=== PATIENT | male | born 1955 | race Caucasian/White ===

== ENCOUNTER 2022-03-06 16:25 | Outpatient (CLI) | payer MEDICARE | END 2022-03-06 16:26 | disposition home or self-care (01) | LOC: CSHRAD 16:25 | PROVIDERS: ATTEND Student in an Organized Health Care Education/Training Program | DX: M25.552 Pain in left hip (principal); Z96.643 Presence of artificial hip joint, bilateral; S72.112A Displaced fracture of greater trochanter of left femur, initial encounter for closed fracture; M89.8X8 Other specified disorders of bone, other site ==

== ENCOUNTER 2022-03-08 10:41 | Outpatient (CLI) | payer MEDICARE | END 2022-03-08 10:42 | disposition home or self-care (01) | LOC: CSHRAD 10:41 | PROVIDERS: ATTEND Student in an Organized Health Care Education/Training Program | DX: M79.605 Pain in left leg (principal); S72.112D Displaced fracture of greater trochanter of left femur, subsequent encounter for closed fracture with routine healing ==

== ENCOUNTER 2022-04-19 10:38 | Outpatient (CLI) | payer MEDICARE | END 2022-04-19 10:39 | disposition home or self-care (01) | LOC: CSHRAD 10:38 | PROVIDERS: ATTEND Orthopaedic Surgery | DX: Z96.642 Presence of left artificial hip joint (principal); S72.112K Displaced fracture of greater trochanter of left femur, subsequent encounter for closed fracture with nonunion | CPT/HCPCS: 20610; 77002 ==

== ENCOUNTER 2022-04-26 23:10 | Emergency (ER) | payer MEDICARE ==
[2022-04-26 23:58] LABS: #Basophils 0.1 10x3/uL (0.0-0.2); #Eosinphils 0.4 10x3/uL (0.0-0.5); #Monocytes 1.1 10x3/uL (0.0-1.1); #Neutrophils 5.1 10x3/uL (1.5-8.4); %Basophils 1.3 % (0.0-2.0); %Eosinophils 4.5 % (0.0-6.0); %Monocytes 12.4 % (0.0-10.0); %Neutrophils 59.4 % (40.0-75.0); Hemoglobin 11.3 g/dL (13.5-17.5); Mean Corpuscular HGB CONC 33.9 g/dL (32.0-36.0); Mean Corpuscular Hemoglobin 35.8 pg (27.0-33.0); Mean Corpuscular Volume 105.4 fl (81.2-95.1); Mean Platelet Volume 9.3 fl (7.4-10.4); Platelet Count 301 10x3/uL (150-450); RBC Distribution Width 13.3 % (11.5-14.5); Red Blood Cell (RBC) Count 3.16 10x6/uL (4.32-5.72); White Blood Cell (WBC) Count 8.5 10x3/uL (3.5-10.5)
[2022-04-27] MEDS ORDERED: Fentanyl 100 MCG/2 ML VIAL ONE
[2022-04-27] MEDS ORDERED: PROPOFOL 20 ML ONE
[2022-04-27 00:18] LABS: Anion Gap 15 mmol/L (10-20); BUN (Urea Nitrogen) 15 mg/dL (8.4-25.7); Calc. Creatinine Clearance 0 mL/min (70-130); Calcium 9.8 mg/dL (7.8-10.44); Carbon Dioxide 24 mmol/L (23-31); Chloride 106 mmol/L (98-107); Estimated GFR 93; Glucose 91 mg/dL (80-115); Potassium 3.5 mmol/L (3.5-5.1); Sodium 141 mmol/L (136-145)
[2022-04-27 02:02] LABS: Platelet Morphology Comment Appears Adequate; RBC Morphology Normal
== END 2022-04-27 08:33 | disposition home or self-care (01) ==
LOC: CSHERS 23:10
DX: T84.011A Broken internal left hip prosthesis, initial encounter (principal); T84.021A Dislocation of internal left hip prosthesis, initial encounter; M17.12 Unilateral primary osteoarthritis, left knee; I10 Essential (primary) hypertension; E78.5 Hyperlipidemia, unspecified; Z79.899 Other long term (current) drug therapy; X50.1XXA Overexertion from prolonged static or awkward postures, initial encounter
CPT/HCPCS: 27265; 72170; 80048; 85025; 99156; 99157; J3010

== ENCOUNTER 2022-06-12 17:48 | Emergency (ER) | payer OTHER, MEDICARE ==
[2022-06-12] MEDS ORDERED: Ketorolac Tromethamine 30 MG/ML VIAL ONE (19:28)
[2022-06-12] MEDS ORDERED: HYDROcodone/Acetaminophen 5/325 mg Tablet ONE (19:28)
== END 2022-06-12 20:38 | disposition home or self-care (01) ==
LOC: CSHERS 17:48
DX: S20.212A Contusion of left front wall of thorax, initial encounter (principal); M25.552 Pain in left hip; I10 Essential (primary) hypertension; E78.5 Hyperlipidemia, unspecified; Z79.899 Other long term (current) drug therapy; Z87.891 Personal history of nicotine dependence; W01.0XXA Fall on same level from slipping, tripping and stumbling without subsequent striking against object, initial encounter; Y92.009 Unspecified place in unspecified non-institutional (private) residence as the place of occurrence of the external cause
CPT/HCPCS: 93005; 96374; J1885

== ENCOUNTER 2022-07-16 08:35 | Outpatient (CLI) | payer MEDICARE | END 2022-07-16 08:36 | disposition home or self-care (01) | LOC: CSHCT 08:35 | PROVIDERS: ATTEND Student in an Organized Health Care Education/Training Program | DX: Z12.2 Encounter for screening for malignant neoplasm of respiratory organs (principal); Z87.891 Personal history of nicotine dependence; J94.8 Other specified pleural conditions; I25.10 Atherosclerotic heart disease of native coronary artery without angina pectoris; I25.84 Coronary atherosclerosis due to calcified coronary lesion | CPT/HCPCS: 71271 ==

== ENCOUNTER 2022-07-17 10:06 | Inpatient (IN) | payer MEDICARE ==
[2022-07-17 11:06] LABS: Hemoglobin 4.5 g/dL (13.5-17.5); MDiff Complete? YES; Mean Corpuscular HGB CONC 28.3 g/dL (32.0-36.0); Platelet Count 631 10x3/uL (150-450); RBC Distribution Width 18.3 % (11.5-14.5); White Blood Cell (WBC) Count 7.8 10x3/uL (3.5-10.5)
[2022-07-17 11:14] LABS: ALT (SGPT) 26 U/L (8-55); AST (SGOT) 27 U/L (5-34); Albumin 3.6 g/dL (3.4-4.8); Alkaline Phosphatase 150 U/L (40-110); Anion Gap 15 mmol/L (10-20); BUN (Urea Nitrogen) 10 mg/dL (8.4-25.7); Bilirubin, Total 0.5 mg/dL (0.2-1.2); Calc. Creatinine Clearance 0 mL/min (70-130); Calcium 9.1 mg/dL (7.8-10.44); Carbon Dioxide 23 mmol/L (23-31); Chloride 107 mmol/L (98-107); Estimated GFR 96; Globulin 2.4 g/dL (2.4-3.5); Glucose 99 mg/dL (80-115); Potassium 4.6 mmol/L (3.5-5.1); Sodium 140 mmol/L (136-145)
[2022-07-17 11:32] LABS: Eosinophils 1 % (0-10); Lymphocytes 13 % (21-51); Monocytes 11 % (0-10); Neutrophil 75 % (42-75)
[2022-07-17 11:34] LABS: Hypochromia SLIGHT = 6-15 cells (100X) (0-5/hpf); Macrocytosis SLIGHT = 6-15 cells (100X) (0-5/hpf); Platelet Morphology Comment Appears Increased
[2022-07-17 11:36] LABS: Anisocytosis SLIGHT = 6-15 cells (100X) (0-5/hpf); Polychromasia SLIGHT = 2-3 cells (100X) (0-2/hpf)
[2022-07-17 11:37] LABS: Stomatocytes SLIGHT = 2-5 cells (100X) (0-1/hpf)
[2022-07-17 11:39] LABS: Reflex for Review?? YES
[2022-07-17 12:59] LABS: #Eosinphils 0.2 10x3/uL (0.0-0.5); #Monocytes 1.3 10x3/uL (0.0-1.1); #Neutrophils 5.1 10x3/uL (1.5-8.4); %Basophils 0.5 % (0.0-2.0); %Eosinophils 2.2 % (0.0-6.0); %Lymphocytes 14.5 % (18.0-47.0); %Monocytes 16.6 % (0.0-10.0); %Neutrophils 65.9 % (40.0-75.0); Hemoglobin 4.3 g/dL (13.5-17.5); Mean Corpuscular HGB CONC 27.9 g/dL (32.0-36.0); Mean Corpuscular Hemoglobin 29.5 pg (27.0-33.0); Mean Corpuscular Volume 105.5 fl (81.2-95.1); Mean Platelet Volume 9.2 fl (7.4-10.4); Platelet Count 550 10x3/uL (150-450); RBC Distribution Width 18.4 % (11.5-14.5); Red Blood Cell (RBC) Count 1.46 10x6/uL (4.32-5.72); White Blood Cell (WBC) Count 7.7 10x3/uL (3.5-10.5)
[2022-07-17] MEDS ORDERED: Iopamidol 300 61% 100 ML VIAL FS ONE (14:02)
[2022-07-17 14:03] LABS: Troponin I 0.023 ng/mL (< 0.028)
[2022-07-17] MEDS ORDERED: Ondansetron ODT 4 MG TAB PO PRN (14:03)
[2022-07-17] MEDS ORDERED: Senokot S 8.6-50 MG TAB PO PRN (14:03)
[2022-07-17] MEDS ORDERED: Calcium Carbonate 500 MG ChewTAB PO PRN (14:03)
[2022-07-17] MEDS ORDERED: Ondansetron PF 4 MG/2 ML Vial IVP PRN (14:03)
[2022-07-17] MEDS ORDERED: Pantoprazole 40 MG VIAL IVP SCH ×2 (14:30→20:00)
[2022-07-17 14:57] LABS: Iron 25 ug/dL (65-175); Iron Binding Capacity, Total 398 mcg/dL (261-462)
[2022-07-17 15:25] LABS: Ferritin 48.1 ng/mL (22-322)
[2022-07-17 16:34] LABS: #Basophils 0.1 10x3/uL (0.0-0.2); #Eosinphils 0.2 10x3/uL (0.0-0.5); #Monocytes 1.4 10x3/uL (0.0-1.1); #Neutrophils 6.1 10x3/uL (1.5-8.4); %Basophils 0.8 % (0.0-2.0); %Eosinophils 2.1 % (0.0-6.0); %Lymphocytes 15.5 % (18.0-47.0); %Monocytes 14.9 % (0.0-10.0); %Neutrophils 66.4 % (40.0-75.0); Hemoglobin 6.9 g/dL (13.5-17.5); Mean Corpuscular HGB CONC 29.7 g/dL (32.0-36.0); Mean Corpuscular Hemoglobin 28.4 pg (27.0-33.0); Mean Corpuscular Volume 95.5 fl (81.2-95.1); Mean Platelet Volume 9.5 fl (7.4-10.4); Platelet Count 547 10x3/uL (150-450); RBC Distribution Width 20.5 % (11.5-14.5); Red Blood Cell (RBC) Count 2.43 10x6/uL (4.32-5.72); White Blood Cell (WBC) Count 9.2 10x3/uL (3.5-10.5)
[2022-07-17 16:53] LABS: Troponin I 0.021 ng/mL (< 0.028)
[2022-07-17 16:54] LABS: Bilirubin Neg (Negative); Blood, Urine Negative (Negative); Clarity Clear (Clear); Glucose, Urine (Dipstick) Normal (Negative); Ketone, Urine Negative (Negative); Leukocyte Negative (Negative); Nitrite Negative (Negative); Protein, Urine (Dipstick) Negative (Neg-Trace); Specific Gravity, Urine 1.015 (1.005-1.030); Urobilinogen Normal mg/dL (Less than 2); pH, Urine 6.5 (5.0-9.0)
[2022-07-17 18:14] VITALS: BMI 22.2
[2022-07-17 18:45] LABS: Hemoglobin 6.9 g/dL (13.5-17.5)
[2022-07-17] MEDS: Sodium Chloride 0.9% 1,000 ML IV SCH (19:55)
[2022-07-17] MEDS: Gabapentin 100 MG CAP PO SCH (20:18)
[2022-07-17 23:38] LABS: Bilirubin Neg (Negative); Blood, Urine Negative (Negative); Clarity Clear (Clear); Glucose, Urine (Dipstick) Normal (Negative); Ketone, Urine Negative (Negative); Leukocyte Negative (Negative); Nitrite Negative (Negative); Protein, Urine (Dipstick) 15 mg/dl (Neg-Trace); Specific Gravity, Urine 1.015 (1.005-1.030); Urobilinogen Normal mg/dL (Less than 2)
[2022-07-17 23:47] LABS: Bacteria/HPF None Seen HPF (None Seen); CAUTI Indications for Culture Dysuria,urgency,freq; RBC/HPF None Seen HPF (0-3); WBC/HPF None Seen HPF (0-3)
[2022-07-17 23:48] LABS: Squamous Epithelial 0-3 HPF (0-3)
[2022-07-17 23:49] LABS: Urine Culture Reflex No No
[2022-07-18 08:41] LABS: #Basophils 0.1 10x3/uL (0.0-0.2); #Eosinphils 0.2 10x3/uL (0.0-0.5); #Monocytes 1.6 10x3/uL (0.0-1.1); #Neutrophils 9.6 10x3/uL (1.5-8.4); %Basophils 0.6 % (0.0-2.0); %Eosinophils 1.8 % (0.0-6.0); %Lymphocytes 7.1 % (18.0-47.0); %Neutrophils 76.9 % (40.0-75.0); Hemoglobin 8.3 g/dL (13.5-17.5); Mean Corpuscular Hemoglobin 28.5 pg (27.0-33.0); Mean Corpuscular Volume 95.2 fl (81.2-95.1); Mean Platelet Volume 9.5 fl (7.4-10.4); Platelet Count 561 10x3/uL (150-450); RBC Distribution Width 19.6 % (11.5-14.5); Red Blood Cell (RBC) Count 2.91 10x6/uL (4.32-5.72); White Blood Cell (WBC) Count 12.5 10x3/uL (3.5-10.5)
[2022-07-18] MEDS: Sodium Chloride 0.9% 1,000 ML IV SCH (08:44)
[2022-07-18 09:00] LABS: Anion Gap 15 mmol/L (10-20); BUN (Urea Nitrogen) 7 mg/dL (8.4-25.7); Calc. Creatinine Clearance 100 mL/min (70-130); Calcium 8.6 mg/dL (7.8-10.44); Carbon Dioxide 23 mmol/L (23-31); Chloride 104 mmol/L (98-107); Estimated GFR 100; Glucose 94 mg/dL (80-115); Potassium 4.3 mmol/L (3.5-5.1); Sodium 138 mmol/L (136-145)
[2022-07-18 09:09] LABS: Anion Gap 11 mmol/L (10-20); BUN (Urea Nitrogen) 8 mg/dL (8.4-25.7); Carbon Dioxide 26 mmol/L (23-31); Chloride 104 mmol/L (98-107); Sodium 137 mmol/L (136-145)
[2022-07-18 09:10] LABS: ALT (SGPT) 25 U/L (8-55); AST (SGOT) 21 U/L (5-34); Albumin 3.2 g/dL (3.4-4.8); Alkaline Phosphatase 141 U/L (40-110); Calc. Creatinine Clearance 99 mL/min (70-130); Calcium 8.7 mg/dL (7.8-10.44); Estimated GFR 100; Globulin 2.7 g/dL (2.4-3.5); Glucose 96 mg/dL (80-115); Protein, Total 5.9 g/dL (5.8-8.1)
[2022-07-18] MEDS: Pantoprazole 40 MG VIAL IVP SCH ×2 (10:42→20:18)
[2022-07-18] MEDS: Atorvastatin Calcium 20 MG TAB PO SCH (10:42)
[2022-07-18] MEDS ORDERED: Furosemide 100 MG/10 ML VIAL SLOW IVP SCH (13:30)
[2022-07-18] MEDS: Ventolin HFA Inhaler 60 PUFF INHALER INH PRN ×3 (14:45→23:24)
[2022-07-18] MEDS ORDERED: GoLYTELY 4,000 ml Bottle PO SCH (19:00)
[2022-07-18] MEDS: Gabapentin 100 MG CAP PO SCH (20:17)
[2022-07-19 05:42] LABS: Anion Gap 15 mmol/L (10-20); BUN (Urea Nitrogen) 8 mg/dL (8.4-25.7); Calc. Creatinine Clearance 96 mL/min (70-130); Calcium 8.6 mg/dL (7.8-10.44); Carbon Dioxide 26 mmol/L (23-31); Chloride 103 mmol/L (98-107); Estimated GFR 99; Glucose 100 mg/dL (80-115); Potassium 3.9 mmol/L (3.5-5.1); Sodium 140 mmol/L (136-145)
[2022-07-19 06:04] LABS: Mean Corpuscular Hemoglobin 28.8 pg (27.0-33.0); Mean Corpuscular Volume 92.7 fl (81.2-95.1); Mean Platelet Volume 9.2 fl (7.4-10.4); Platelet Count 526 10x3/uL (150-450); RBC Distribution Width 19.1 % (11.5-14.5); Red Blood Cell (RBC) Count 3.13 10x6/uL (4.32-5.72); White Blood Cell (WBC) Count 11.3 10x3/uL (3.5-10.5)
[2022-07-19 06:34] LABS: MDiff Complete? YES
[2022-07-19 06:44] LABS: Eosinophils 1 % (0-10); Lymphocytes 11 % (21-51); Monocytes 18 % (0-10); Neutrophil 70 % (42-75)
[2022-07-19 06:46] LABS: Hypochromia SLIGHT = 6-15 cells (100X) (0-5/hpf); Microcytosis SLIGHT = 6-15 cells (100X) (0-5/hpf); Platelet Morphology Comment Appears Increased
[2022-07-19] MEDS: Pantoprazole 40 MG VIAL IVP SCH ×2 (08:36→20:25)
[2022-07-19] MEDS: Atorvastatin Calcium 20 MG TAB PO SCH (08:36)
[2022-07-19] MEDS: Ventolin HFA Inhaler 60 PUFF INHALER INH PRN ×3 (09:50→19:45)
[2022-07-19] MEDS: Furosemide 40 MG/4 ML VIAL SLOW IVP SCH ×2 (14:11→17:35)
[2022-07-19] MEDS ORDERED: PROPOFOL 20 ML ONE ×3 (15:13→16:12)
[2022-07-19] MEDS ORDERED: Hydrocortisone Sod Succ/PF 100 mg/2 ml Vial ONE (15:13)
[2022-07-19] MEDS ORDERED: Rocuronium Bromide 10 MG/ML (10ML VIAL) ONE (15:13)
[2022-07-19] MEDS ORDERED: Succinylcholine 200 MG/10 ml SYRINGE FS ONE (15:14)
[2022-07-19] MEDS ORDERED: Labetalol HCl 100 MG/20 ML VIAL ONE (15:14)
[2022-07-19] MEDS ORDERED: PHENYLEPHRINE-NS 100 MCG/ML 10 ML SYRINGE ONE (15:14)
[2022-07-19] MEDS ORDERED: Albuterol HFA (OR) 200 PUFF INH ONE (15:14)
[2022-07-19] MEDS ORDERED: Fentanyl 100 MCG/2 ML VIAL ONE (15:45)
[2022-07-19] MEDS: Gabapentin 100 MG CAP PO SCH (20:25)
[2022-07-20 07:37] LABS: #Basophils 0.1 10x3/uL (0.0-0.2); #Eosinphils 0.3 10x3/uL (0.0-0.5); #Monocytes 2.3 10x3/uL (0.0-1.1); %Basophils 0.5 % (0.0-2.0); %Eosinophils 1.9 % (0.0-6.0); %Lymphocytes 5.5 % (18.0-47.0); %Monocytes 12.9 % (0.0-10.0); %Neutrophils 78.8 % (40.0-75.0); Mean Corpuscular HGB CONC 30.6 g/dL (32.0-36.0); Mean Corpuscular Hemoglobin 28.7 pg (27.0-33.0); Mean Corpuscular Volume 93.6 fl (81.2-95.1); Mean Platelet Volume 9.1 fl (7.4-10.4); Platelet Count 527 10x3/uL (150-450); Red Blood Cell (RBC) Count 3.14 10x6/uL (4.32-5.72); White Blood Cell (WBC) Count 17.8 10x3/uL (3.5-10.5)
[2022-07-20 07:50] LABS: Anion Gap 15 mmol/L (10-20); BUN (Urea Nitrogen) 8 mg/dL (8.4-25.7); Calc. Creatinine Clearance 99 mL/min (70-130); Calcium 8.5 mg/dL (7.8-10.44); Carbon Dioxide 23 mmol/L (23-31); Chloride 101 mmol/L (98-107); Estimated GFR 100; Glucose 105 mg/dL (80-115); Potassium 3.7 mmol/L (3.5-5.1); Sodium 135 mmol/L (136-145)
[2022-07-20] MEDS: Acetaminophen 325 MG TAB PO PRN ×2 (08:49→21:39)
[2022-07-20] MEDS: Atorvastatin Calcium 20 MG TAB PO SCH (08:49)
[2022-07-20] MEDS: Pantoprazole 40 MG VIAL IVP SCH ×2 (08:50→21:38)
[2022-07-20] MEDS: Ampicillin/Sulbactam 1.5 GM in Sodium Chloride 0.9% 100 ML IVPB SCH ×3 (12:22→23:32)
[2022-07-20 12:33] LABS: Bilirubin Neg (Negative); Blood, Urine Negative (Negative); Clarity Clear (Clear); Glucose, Urine (Dipstick) Normal (Negative); Ketone, Urine Negative (Negative); Leukocyte Negative (Negative); Nitrite Negative (Negative); Protein, Urine (Dipstick) 15 mg/dl (Neg-Trace); Specific Gravity, Urine 1.005 (1.005-1.030); Urobilinogen Normal mg/dL (Less than 2)
[2022-07-20 13:13] LABS: Bacteria/HPF Rare-Few HPF (None Seen); CAUTI Indications for Culture Fever or rigors; RBC/HPF 0-3 HPF (0-3); Squamous Epithelial None Seen HPF (0-3); WBC/HPF 0-3 HPF (0-3)
[2022-07-20 13:14] LABS: Urine Culture Reflex No No
[2022-07-20] MEDS: Ventolin HFA Inhaler 60 PUFF INHALER INH PRN (18:11)
[2022-07-20] MEDS: Gabapentin 100 MG CAP PO SCH (21:40)
[2022-07-21] MEDS: Acetaminophen 325 MG TAB PO PRN (00:50)
[2022-07-21] MEDS: Ampicillin/Sulbactam 1.5 GM in Sodium Chloride 0.9% 100 ML IVPB SCH ×2 (05:23→11:51)
[2022-07-21 07:18] LABS: #Basophils 0.1 10x3/uL (0.0-0.2); #Eosinphils 0.5 10x3/uL (0.0-0.5); #Monocytes 1.6 10x3/uL (0.0-1.1); #Neutrophils 7.2 10x3/uL (1.5-8.4); %Basophils 0.8 % (0.0-2.0); %Eosinophils 4.5 % (0.0-6.0); %Monocytes 14.9 % (0.0-10.0); %Neutrophils 68.4 % (40.0-75.0); Hemoglobin 9.5 g/dL (13.5-17.5); Mean Corpuscular HGB CONC 30.6 g/dL (32.0-36.0); Mean Corpuscular Hemoglobin 28.6 pg (27.0-33.0); Mean Corpuscular Volume 93.4 fl (81.2-95.1); Mean Platelet Volume 9.5 fl (7.4-10.4); Platelet Count 512 10x3/uL (150-450); RBC Distribution Width 18.5 % (11.5-14.5); Red Blood Cell (RBC) Count 3.32 10x6/uL (4.32-5.72); White Blood Cell (WBC) Count 10.6 10x3/uL (3.5-10.5)
[2022-07-21 07:34] LABS: Anion Gap 15 mmol/L (10-20); BUN (Urea Nitrogen) 9 mg/dL (8.4-25.7); Calc. Creatinine Clearance 100 mL/min (70-130); Calcium 8.8 mg/dL (7.8-10.44); Carbon Dioxide 24 mmol/L (23-31); Chloride 104 mmol/L (98-107); Estimated GFR 100; Glucose 93 mg/dL (80-115); Potassium 3.5 mmol/L (3.5-5.1); Sodium 139 mmol/L (136-145)
[2022-07-21] MEDS: Atorvastatin Calcium 20 MG TAB PO SCH (07:58)
[2022-07-21] MEDS: Pantoprazole 40 MG VIAL IVP SCH (07:58)
[2022-07-21] MEDS ORDERED: Senokot S 8.6-50 MG TAB PO PRN (10:00)
[2022-07-21 13:12] VITALS: BP 175/84; TEMP 99.7
== END 2022-07-21 14:25 | disposition home or self-care (01) | DRG 378 ==
LOC: CSHERS 10:06 → SUATTDRO 10:06 → CSHTELE 17:56
PROVIDERS: ADMIT Internal Medicine; ATTEND Internal Medicine
PROC: 30233N1 Transfusion of Nonautologous Red Blood Cells into Peripheral Vein, Percutaneous Approach (ICD-10-PCS; 2022-07-17)
PROC: 0DB78ZX Excision of Stomach, Pylorus, Via Natural or Artificial Opening Endoscopic, Diagnostic (ICD-10-PCS; principal; 2022-07-19)
PROC: 0DBK8ZZ Excision of Ascending Colon, Via Natural or Artificial Opening Endoscopic (ICD-10-PCS; 2022-07-19)
PROC: 0W3P8ZZ Control Bleeding in Gastrointestinal Tract, Via Natural or Artificial Opening Endoscopic (ICD-10-PCS; 2022-07-19)
PROC: 0DB98ZX Excision of Duodenum, Via Natural or Artificial Opening Endoscopic, Diagnostic (ICD-10-PCS; 2022-07-19)
DX: K25.4 Chronic or unspecified gastric ulcer with hemorrhage (principal); D62 Acute posthemorrhagic anemia; J90 Pleural effusion, not elsewhere classified; F10.10 Alcohol abuse, uncomplicated; I10 Essential (primary) hypertension; E78.5 Hyperlipidemia, unspecified; J44.9 Chronic obstructive pulmonary disease, unspecified; I25.10 Atherosclerotic heart disease of native coronary artery without angina pectoris; I25.84 Coronary atherosclerosis due to calcified coronary lesion; Z96.642 Presence of left artificial hip joint; G89.29 Other chronic pain; G62.9 Polyneuropathy, unspecified; D50.9 Iron deficiency anemia, unspecified; K63.5 Polyp of colon; K64.8 Other hemorrhoids; K57.30 Diverticulosis of large intestine without perforation or abscess without bleeding; Z87.891 Personal history of nicotine dependence; Z85.118 Personal history of other malignant neoplasm of bronchus and lung; Z79.82 Long term (current) use of aspirin; Z79.899 Other long term (current) drug therapy; Z12.2 Encounter for screening for malignant neoplasm of respiratory organs
CPT/HCPCS: 36415; 36430; 71045; 71271; 74177; 80048; 80053; 81001; 81003; 82274; 82607; 82728; 83540; 83550; 83615; 83880; 84484; 85025; 85046; 85060; 86850; 86900; 86901; 87040; 88305; 93005; 94664; 94760; C9113; J0295; J1720; J1940; J2704; J3010; J3490; J7050; P9016; Q9967

== ENCOUNTER 2023-01-01 17:45 | Emergency (ER) | payer MEDICARE ==
[2023-01-01 18:43] LABS: #Basophils 0.1 10x3/uL (0.0-0.2); #Eosinphils 0.2 10x3/uL (0.0-0.5); #Monocytes 1.1 10x3/uL (0.0-1.1); #Neutrophils 6.2 10x3/uL (1.5-8.4); %Basophils 0.7 % (0.0-2.0); %Eosinophils 2.3 % (0.0-6.0); %Lymphocytes 20.6 % (18.0-47.0); %Monocytes 11.7 % (0.0-10.0); %Neutrophils 64.4 % (40.0-75.0); Hemoglobin 14.7 g/dL (13.5-17.5); Mean Corpuscular Hemoglobin 35.8 pg (27.0-33.0); Mean Corpuscular Volume 102.2 fl (81.2-95.1); Mean Platelet Volume 10.3 fl (7.4-10.4); Platelet Count 194 10x3/uL (150-450); RBC Distribution Width 12.6 % (11.5-14.5); Red Blood Cell (RBC) Count 4.11 10x6/uL (4.32-5.72); White Blood Cell (WBC) Count 9.6 10x3/uL (3.5-10.5)
[2023-01-01 18:59] LABS: ALT (SGPT) 109 U/L (8-55); AST (SGOT) 178 U/L (5-34); Albumin 4.4 g/dL (3.4-4.8); Alkaline Phosphatase 81 U/L (40-110); Anion Gap 18 mmol/L (10-20); BUN (Urea Nitrogen) 4 mg/dL (8.4-25.7); Calc. Creatinine Clearance 0 mL/min (70-130); Calcium 9.9 mg/dL (7.8-10.44); Carbon Dioxide 24 mmol/L (23-31); Chloride 99 mmol/L (98-107); Estimated GFR 95; Globulin 3.1 g/dL (2.4-3.5); Glucose 92 mg/dL (80-115); Lipase 35 U/L (8-78); Potassium 3.5 mmol/L (3.5-5.1); Protein, Total 7.5 g/dL (5.8-8.1); Sodium 137 mmol/L (136-145)
[2023-01-01 20:13] LABS: Bilirubin Neg (Negative); Blood, Urine Negative (Negative); Clarity Clear (Clear); Glucose, Urine (Dipstick) Normal (Negative); Ketone, Urine Negative (Negative); Leukocyte Negative (Negative); Nitrite Negative (Negative); Protein, Urine (Dipstick) Negative (Neg-Trace); Urobilinogen Normal mg/dL (Less than 2)
[2023-01-01 20:41] LABS: CAUTI Indications for Culture Pelvic or flank pain; RBC/HPF None Seen HPF (0-3); Squamous Epithelial None Seen HPF (0-3); WBC/HPF None Seen HPF (0-3)
[2023-01-01 20:42] LABS: Bacteria/HPF None Seen HPF (None Seen)
[2023-01-01 20:43] LABS: Urine Culture Reflex No No
[2023-01-01] MEDS ORDERED: Dicyclomine 20 MG/2 ML VIAL IM SCH (21:30)
== END 2023-01-01 21:12 | disposition home or self-care (01) ==
LOC: CSHERS 17:45
DX: R10.31 Right lower quadrant pain (principal); R10.32 Left lower quadrant pain; I10 Essential (primary) hypertension; Z87.891 Personal history of nicotine dependence
CPT/HCPCS: 36415; 74177; 80053; 81001; 83605; 83690; 85025; 96372

== ENCOUNTER 2023-01-14 19:29 | Emergency (ER) | payer MEDICARE ==
[2023-01-14] MEDS ORDERED: Ondansetron PF 4 MG/2 ML Vial ONE ×2 (20:16→22:36)
[2023-01-14 20:29] LABS: #Basophils 0.1 10x3/uL (0.0-0.2); #Neutrophils 7.3 10x3/uL (1.5-8.4); %Basophils 0.8 % (0.0-2.0); %Eosinophils 0.1 % (0.0-6.0); %Lymphocytes 9.8 % (18.0-47.0); %Monocytes 10.5 % (0.0-10.0); %Neutrophils 78.3 % (40.0-75.0); Hematocrit 42.4 % (38.8-50.0); Hemoglobin 14.8 g/dL (13.5-17.5); Mean Corpuscular HGB CONC 34.9 g/dL (32.0-36.0); Mean Corpuscular Hemoglobin 35.7 pg (27.0-33.0); Mean Corpuscular Volume 102.2 fl (81.2-95.1); Platelet Count 168 10x3/uL (150-450); RBC Distribution Width 11.9 % (11.5-14.5); Red Blood Cell (RBC) Count 4.15 10x6/uL (4.32-5.72); White Blood Cell (WBC) Count 9.3 10x3/uL (3.5-10.5)
[2023-01-14 20:35] LABS: ALT (SGPT) 80 U/L (8-55); AST (SGOT) 108 U/L (5-34); Albumin 4.9 g/dL (3.4-4.8); Alkaline Phosphatase 105 U/L (40-110); Anion Gap 19 mmol/L (10-20); BUN (Urea Nitrogen) 7 mg/dL (8.4-25.7); Bilirubin, Total 1.5 mg/dL (0.2-1.2); Calc. Creatinine Clearance 0 mL/min (70-130); Calcium 11.5 mg/dL (7.8-10.44); Carbon Dioxide 28 mmol/L (23-31); Chloride 98 mmol/L (98-107); Estimated GFR 93; Glucose 122 mg/dL (80-115); Lipase 16 U/L (8-78); Potassium 4.1 mmol/L (3.5-5.1); Protein, Total 7.9 g/dL (5.8-8.1); Sodium 141 mmol/L (136-145)
[2023-01-14 20:39] LABS: Troponin I 0.016 ng/mL (< 0.028)
[2023-01-14 22:51] LABS: ALT (SGPT) 64 U/L (8-55); AST (SGOT) 87 U/L (5-34); Alkaline Phosphatase 86 U/L (40-110); Anion Gap 15 mmol/L (10-20); BUN (Urea Nitrogen) 7 mg/dL (8.4-25.7); Bilirubin, Total 1.2 mg/dL (0.2-1.2); Calc. Creatinine Clearance 0 mL/min (70-130); Calcium 10.2 mg/dL (7.8-10.44); Carbon Dioxide 28 mmol/L (23-31); Chloride 102 mmol/L (98-107); Estimated GFR 97; Globulin 2.7 g/dL (2.4-3.5); Glucose 113 mg/dL (80-115); Potassium 3.5 mmol/L (3.5-5.1); Protein, Total 6.7 g/dL (5.8-8.1); Sodium 141 mmol/L (136-145)
[2023-01-14 23:01] LABS: Lactic Acid 1.1 mmol/L (0.5-2.2)
[2023-01-14] MEDS ORDERED: Ondansetron ODT 4 MG TAB ONE (23:19)
== END 2023-01-14 23:37 | disposition home or self-care (01) ==
LOC: CSHERS 19:29
DX: R10.9 Unspecified abdominal pain (principal); R11.2 Nausea with vomiting, unspecified; E83.52 Hypercalcemia; I10 Essential (primary) hypertension; E78.5 Hyperlipidemia, unspecified; Z87.891 Personal history of nicotine dependence; Z79.899 Other long term (current) drug therapy
CPT/HCPCS: 36415; 36416; 76705; 80053; 83605; 83690; 84484; 85025; 93005; J2405; Q0162

== ENCOUNTER 2023-03-01 10:06 | Emergency (ER) | payer MEDICARE ==
[2023-03-01 10:44] LABS: #Basophils 0.1 10x3/uL (0.0-0.2); #Eosinphils 0.3 10x3/uL (0.0-0.5); #Monocytes 0.9 10x3/uL (0.0-1.1); #Neutrophils 2.3 10x3/uL (1.5-8.4); %Basophils 1.6 % (0.0-2.0); %Eosinophils 5.2 % (0.0-6.0); %Lymphocytes 37.1 % (18.0-47.0); %Monocytes 15.2 % (0.0-10.0); %Neutrophils 40.9 % (40.0-75.0); Hematocrit 38.7 % (38.8-50.0); Hemoglobin 13.5 g/dL (13.5-17.5); Mean Corpuscular HGB CONC 34.9 g/dL (32.0-36.0); Mean Corpuscular Volume 103.2 fl (81.2-95.1); Mean Platelet Volume 9.4 fl (7.4-10.4); Platelet Count 231 10x3/uL (150-450); RBC Distribution Width 12.1 % (11.5-14.5); Red Blood Cell (RBC) Count 3.75 10x6/uL (4.32-5.72); White Blood Cell (WBC) Count 5.6 10x3/uL (3.5-10.5)
[2023-03-01 11:03] LABS: ALT (SGPT) 62 U/L (8-55); AST (SGOT) 88 U/L (5-34); Alkaline Phosphatase 101 U/L (40-110); Anion Gap 17 mmol/L (10-20); BUN (Urea Nitrogen) 6 mg/dL (8.4-25.7); Bilirubin, Total 0.7 mg/dL (0.2-1.2); Calc. Creatinine Clearance 0 mL/min (70-130); Calcium 9.1 mg/dL (7.8-10.44); Carbon Dioxide 27 mmol/L (23-31); Chloride 102 mmol/L (98-107); Estimated GFR 98; Globulin 3.1 g/dL (2.4-3.5); Glucose 104 mg/dL (80-115); Lipase 30 U/L (8-78); Potassium 3.6 mmol/L (3.5-5.1); Protein, Total 7.1 g/dL (5.8-8.1); Sodium 142 mmol/L (136-145)
[2023-03-01 13:34] LABS: Bilirubin Neg (Negative); Blood, Urine Negative (Negative); Clarity Clear (Clear); Glucose, Urine (Dipstick) Normal (Negative); Ketone, Urine Negative (Negative); Leukocyte Negative (Negative); Nitrite Negative (Negative); Protein, Urine (Dipstick) 15 mg/dl (Neg-Trace)
[2023-03-01 13:49] LABS: Bacteria/HPF None Seen HPF (None Seen); CAUTI Indications for Culture Pelvic or flank pain; RBC/HPF None Seen HPF (0-3); Squamous Epithelial None Seen HPF (0-3); Urine Culture Reflex No No; WBC/HPF None Seen HPF (0-3)
== END 2023-03-01 14:50 | disposition home or self-care (01) ==
LOC: CSHERS 10:06
DX: R30.0 Dysuria (principal); R10.30 Lower abdominal pain, unspecified; Z87.891 Personal history of nicotine dependence; Z79.899 Other long term (current) drug therapy
CPT/HCPCS: 36415; 80053; 81001; 83690; 85025; 93005

== ENCOUNTER 2023-03-09 16:50 | Emergency (ER) | payer MEDICARE ==
[2023-03-09] MEDS ORDERED: Tamsulosin HCl 0.4 MG CAP ONE (17:38)
[2023-03-09 17:43] LABS: #Basophils 0.1 10x3/uL (0.0-0.2); #Eosinphils 0.3 10x3/uL (0.0-0.5); #Monocytes 0.8 10x3/uL (0.0-1.1); #Neutrophils 1.7 10x3/uL (1.5-8.4); %Basophils 1.9 % (0.0-2.0); %Eosinophils 7.4 % (0.0-6.0); %Lymphocytes 34.8 % (18.0-47.0); %Monocytes 17.4 % (0.0-10.0); %Neutrophils 38.3 % (40.0-75.0); Hematocrit 34.9 % (38.8-50.0); Mean Corpuscular HGB CONC 34.4 g/dL (32.0-36.0); Mean Corpuscular Hemoglobin 35.7 pg (27.0-33.0); Mean Corpuscular Volume 103.9 fl (81.2-95.1); Mean Platelet Volume 9.3 fl (7.4-10.4); Platelet Count 143 10x3/uL (150-450); RBC Distribution Width 12.4 % (11.5-14.5); Red Blood Cell (RBC) Count 3.36 10x6/uL (4.32-5.72); White Blood Cell (WBC) Count 4.3 10x3/uL (3.5-10.5)
[2023-03-09 17:51] LABS: Acetaminophen Less than 10 mcg/mL (10.0-30.0); Alcohol 329.7 mg/dL (Less than 10); Salicylate Less than 8.0 mg/dL (15.0-30.0)
[2023-03-09 17:52] LABS: ALT (SGPT) 139 U/L (8-55); AST (SGOT) 188 U/L (5-34); Alkaline Phosphatase 118 U/L (40-110); Anion Gap 18 mmol/L (10-20); BUN (Urea Nitrogen) 4 mg/dL (8.4-25.7); Bilirubin, Total 0.9 mg/dL (0.2-1.2); Calc. Creatinine Clearance 0 mL/min (70-130); Carbon Dioxide 23 mmol/L (23-31); Chloride 107 mmol/L (98-107); Estimated GFR 99; Globulin 2.7 g/dL (2.4-3.5); Glucose 104 mg/dL (80-115); Potassium 3.5 mmol/L (3.5-5.1); Protein, Total 6.7 g/dL (5.8-8.1); Sodium 144 mmol/L (136-145)
[2023-03-09 19:14] LABS: Bilirubin Neg (Negative); Blood, Urine Negative (Negative); Clarity Clear (Clear); Glucose, Urine (Dipstick) Normal (Negative); Ketone, Urine Negative (Negative); Leukocyte Negative (Negative); Nitrite Negative (Negative); Protein, Urine (Dipstick) Negative (Neg-Trace)
[2023-03-09 19:25] LABS: Amphetamine Not Detected (NotDetected); Barbiturates Screen Not Detected (NotDetected); Benzodiazepine Screen Not Detected (NotDetected); Cocaine Metabolite Screen Not Detected (NotDetected); Methadone Not Detected (NotDetected); Methamphetamine Not Detected (NotDetected); Opiate Screen Not Detected (NotDetected); Oxycodone Screen Not Detected (NotDetected); Phencyclidine (PCP) Not Detected (NotDetected); THC/Cannabinoid Screen Not Detected (NotDetected); Tricyclic Screen Not Detected (NotDetected)
[2023-03-09 19:52] LABS: Bacteria/HPF None Seen HPF (None Seen); CAUTI Indications for Culture Pelvic or flank pain; RBC/HPF None Seen HPF (0-3); Squamous Epithelial None Seen HPF (0-3); WBC/HPF None Seen HPF (0-3)
[2023-03-09 19:53] LABS: Urine Culture Reflex No No
== END 2023-03-09 20:09 | disposition home or self-care (01) ==
LOC: CSHERS 16:50
DX: F10.129 Alcohol abuse with intoxication, unspecified (principal); R10.30 Lower abdominal pain, unspecified; I10 Essential (primary) hypertension; Z87.891 Personal history of nicotine dependence
CPT/HCPCS: 36415; 80053; 80306; 80307; 81001; 85025; 99284

== ENCOUNTER 2023-03-13 14:02 | Emergency (ER) | payer MEDICARE ==
[2023-03-13 14:56] LABS: #Basophils 0.1 10x3/uL (0.0-0.2); #Eosinphils 0.2 10x3/uL (0.0-0.5); #Monocytes 0.9 10x3/uL (0.0-1.1); #Neutrophils 2.2 10x3/uL (1.5-8.4); %Basophils 1.6 % (0.0-2.0); %Eosinophils 4.8 % (0.0-6.0); %Lymphocytes 32.1 % (18.0-47.0); %Monocytes 17.9 % (0.0-10.0); %Neutrophils 43.6 % (40.0-75.0); Hemoglobin 11.9 g/dL (13.5-17.5); Mean Corpuscular Hemoglobin 35.6 pg (27.0-33.0); Mean Corpuscular Volume 104.8 fl (81.2-95.1); Mean Platelet Volume 9.1 fl (7.4-10.4); Platelet Count 167 10x3/uL (150-450); RBC Distribution Width 12.3 % (11.5-14.5); Red Blood Cell (RBC) Count 3.34 10x6/uL (4.32-5.72)
[2023-03-13 15:03] LABS: Anion Gap 15 mmol/L (10-20); BUN (Urea Nitrogen) 4 mg/dL (8.4-25.7); Calc. Creatinine Clearance 0 mL/min (70-130); Calcium 8.4 mg/dL (7.8-10.44); Carbon Dioxide 26 mmol/L (23-31); Chloride 110 mmol/L (98-107); Estimated GFR 100; Glucose 100 mg/dL (80-115); Potassium 2.7 mmol/L (3.5-5.1); Sodium 148 mmol/L (136-145)
[2023-03-13 15:22] LABS: Magnesium 1.6 mg/dL (1.6-2.6)
[2023-03-13] MEDS ORDERED: Potassium Chloride 20 MEQ TAB ONE (15:25)
[2023-03-13] MEDS ORDERED: Potassium Chloride 20 MEQ/100 ML PREMIX BAG ONE (15:26)
[2023-03-13 16:45] LABS: Anion Gap 14 mmol/L (10-20); BUN (Urea Nitrogen) 4 mg/dL (8.4-25.7); Calc. Creatinine Clearance 0 mL/min (70-130); Calcium 8.6 mg/dL (7.8-10.44); Carbon Dioxide 26 mmol/L (23-31); Chloride 108 mmol/L (98-107); Estimated GFR 101; Glucose 103 mg/dL (80-115); Potassium 3.2 mmol/L (3.5-5.1); Sodium 145 mmol/L (136-145)
[2023-03-13 16:50] LABS: Amphetamine Not Detected (NotDetected); Barbiturates Screen Not Detected (NotDetected); Benzodiazepine Screen Not Detected (NotDetected); Cocaine Metabolite Screen Not Detected (NotDetected); Methadone Not Detected (NotDetected); Methamphetamine Not Detected (NotDetected); Opiate Screen Not Detected (NotDetected); Oxycodone Screen Not Detected (NotDetected); Phencyclidine (PCP) Not Detected (NotDetected); THC/Cannabinoid Screen Not Detected (NotDetected); Tricyclic Screen Not Detected (NotDetected)
[2023-03-13 17:19] LABS: Acetaminophen Less than 10 mcg/mL (10.0-30.0); Alcohol 301.5 mg/dL (Less than 10); Salicylate Less than 8.0 mg/dL (15.0-30.0)
== END 2023-03-13 19:15 | disposition home or self-care (01) ==
LOC: CSHERS 14:02
DX: F10.129 Alcohol abuse with intoxication, unspecified (principal); I10 Essential (primary) hypertension; E78.5 Hyperlipidemia, unspecified; Z87.891 Personal history of nicotine dependence; Y90.8 Blood alcohol level of 240 mg/100 ml or more; E87.6 Hypokalemia
CPT/HCPCS: 36415; 80048; 80306; 80307; 83735; 85025; 93005; 96374; J3480

== ENCOUNTER 2023-05-11 21:59 | Inpatient (IN) | payer MEDICARE, OTHER ==
[2023-05-11 22:38] LABS: #Basophils 0.1 10x3/uL (0.0-0.2); #Eosinphils 0.2 10x3/uL (0.0-0.5); #Monocytes 0.7 10x3/uL (0.0-1.1); #Neutrophils 2.5 10x3/uL (1.5-8.4); %Basophils 1.8 % (0.0-2.0); %Eosinophils 3.2 % (0.0-6.0); %Lymphocytes 38.5 % (18.0-47.0); %Monocytes 12.1 % (0.0-10.0); %Neutrophils 44.2 % (40.0-75.0); Hematocrit 40.1 % (38.8-50.0); Hemoglobin 13.9 g/dL (13.5-17.5); Mean Corpuscular HGB CONC 34.7 g/dL (32.0-36.0); Mean Corpuscular Hemoglobin 34.6 pg (27.0-33.0); Mean Corpuscular Volume 99.8 fl (81.2-95.1); Mean Platelet Volume 9.8 fl (7.4-10.4); Platelet Count 167 10x3/uL (150-450); RBC Distribution Width 13.7 % (11.5-14.5); Red Blood Cell (RBC) Count 4.02 10x6/uL (4.32-5.72); White Blood Cell (WBC) Count 5.6 10x3/uL (3.5-10.5)
[2023-05-11 22:55] LABS: Acetaminophen Less than 10 mcg/mL (10.0-30.0); Salicylate Less than 8.0 mg/dL (15.0-30.0)
[2023-05-11 22:56] LABS: ALT (SGPT) 50 U/L (8-55); AST (SGOT) 85 U/L (5-34); Albumin 4.4 g/dL (3.4-4.8); Alkaline Phosphatase 88 U/L (40-110); Anion Gap 20 mmol/L (10-20); BUN (Urea Nitrogen) 6 mg/dL (8.4-25.7); Calc. Creatinine Clearance 0 mL/min (70-130); Calcium 9.1 mg/dL (7.8-10.44); Carbon Dioxide 25 mmol/L (23-31); Chloride 102 mmol/L (98-107); Estimated GFR 96; Globulin 2.9 g/dL (2.4-3.5); Glucose 95 mg/dL (80-115); Potassium 3.5 mmol/L (3.5-5.1); Protein, Total 7.3 g/dL (5.8-8.1); Sodium 143 mmol/L (136-145)
[2023-05-11 23:18] LABS: Amphetamine Not Detected (NotDetected); Barbiturates Screen Not Detected (NotDetected); Benzodiazepine Screen Not Detected (NotDetected); Cocaine Metabolite Screen Not Detected (NotDetected); Methadone Not Detected (NotDetected); Methamphetamine Not Detected (NotDetected); Opiate Screen Not Detected (NotDetected); Oxycodone Screen Not Detected (NotDetected); Phencyclidine (PCP) Not Detected (NotDetected); THC/Cannabinoid Screen Not Detected (NotDetected); Tricyclic Screen Not Detected (NotDetected)
[2023-05-12] MEDS ORDERED: Ondansetron ODT 4 MG TAB ONE (05:27)
[2023-05-12] MEDS ORDERED: Ondansetron PF 4 MG/2 ML Vial ONE (07:12)
[2023-05-12] MEDS ORDERED: Pantoprazole 40 MG VIAL ONE (08:22)
[2023-05-12] MEDS ORDERED: Metoclopramide HCl 10 MG (2 mL) VIAL ONE (09:18)
[2023-05-12] MEDS ORDERED: Lorazepam 2 MG/ML VIAL ONE ×2 (09:29→13:00)
[2023-05-12 11:16] LABS: Troponin I Less than 0.010 ng/mL (< 0.028)
[2023-05-12 11:17] LABS: Lipase 20 U/L (8-78); Magnesium 1.4 mg/dL (1.6-2.6)
[2023-05-12] MEDS ORDERED: Magnesium 2 GM/50 ML BAG (IN WATER) ONE (11:37)
[2023-05-12] MEDS ORDERED: Ondansetron ODT 4 MG TAB PO PRN (14:39)
[2023-05-12] MEDS ORDERED: Metoprolol Tartrate 5 MG (5 mL) VIAL IVP PRN (14:39)
[2023-05-12] MEDS ORDERED: Ipratropium/Albuterol 3 ML NEB NEB PRN (14:45)
[2023-05-12] MEDS ORDERED: Electrolyte Replacement Protocol 1 EACH FS SCH (14:45)
[2023-05-12] MEDS: Lisinopril 10 MG TAB PO SCH (15:19)
[2023-05-12] MEDS ORDERED: Thiamine HCl 200 MG/2 ML VIAL ONE (15:30)
[2023-05-12] MEDS ORDERED: cefTRIAXone (ROCEPHIN) 1 GM VIAL ONE (15:30)
[2023-05-12] MEDS: Thiamine HCl 200 MG/2 ML VIAL SLOW IVP SCH (15:37)
[2023-05-12] MEDS: cefTRIAXone\\ROCEPHIN 1 GM in Sodium Chloride 0.9% 100 ML IVPB SCH (15:38)
[2023-05-12 15:43] LABS: Anion Gap 17 mmol/L (10-20); BUN (Urea Nitrogen) 9 mg/dL (8.4-25.7); Calc. Creatinine Clearance 0 mL/min (70-130); Calcium 8.8 mg/dL (7.8-10.44); Carbon Dioxide 23 mmol/L (23-31); Chloride 101 mmol/L (98-107); Estimated GFR 98; Glucose 112 mg/dL (80-115); Magnesium 2.2 mg/dL (1.6-2.6); Potassium 4.1 mmol/L (3.5-5.1); Sodium 137 mmol/L (136-145)
[2023-05-12] MEDS: Ipratropium/Albuterol 3 ML NEB NEB SCH (15:45)
[2023-05-12 15:51] LABS: Troponin I 0.012 ng/mL (< 0.028)
[2023-05-12 18:09] VITALS: BMI 22.8
[2023-05-12] MEDS: Sodium Chloride 0.9% 1,000 ML IV SCH (20:29)
[2023-05-13] MEDS: Lorazepam 0.5 MG TAB PO PRN (05:06)
[2023-05-13 05:48] LABS: #Eosinphils 0.1 10x3/uL (0.0-0.5); #Monocytes 0.8 10x3/uL (0.0-1.1); #Neutrophils 4.7 10x3/uL (1.5-8.4); %Basophils 0.6 % (0.0-2.0); %Eosinophils 1.9 % (0.0-6.0); %Lymphocytes 11.6 % (18.0-47.0); %Monocytes 11.7 % (0.0-10.0); Hematocrit 35.4 % (38.8-50.0); Hemoglobin 11.8 g/dL (13.5-17.5); Mean Corpuscular HGB CONC 33.3 g/dL (32.0-36.0); Mean Platelet Volume 10.5 fl (7.4-10.4); Platelet Count 123 10x3/uL (150-450); RBC Distribution Width 13.7 % (11.5-14.5); Red Blood Cell (RBC) Count 3.47 10x6/uL (4.32-5.72); White Blood Cell (WBC) Count 6.4 10x3/uL (3.5-10.5)
[2023-05-13 05:55] LABS: Anion Gap 14 mmol/L (10-20); BUN (Urea Nitrogen) 8 mg/dL (8.4-25.7); Calc. Creatinine Clearance 98 mL/min (70-130); Calcium 8.5 mg/dL (7.8-10.44); Carbon Dioxide 25 mmol/L (23-31); Chloride 102 mmol/L (98-107); Estimated GFR 99; Glucose 94 mg/dL (80-115); Potassium 3.5 mmol/L (3.5-5.1); Sodium 137 mmol/L (136-145)
[2023-05-13] MEDS: Multivit, Therapeutic 1 TAB PO SCH (09:13)
[2023-05-13] MEDS: Folic Acid 1 MG TAB PO SCH (09:14)
[2023-05-13] MEDS: Potassium Chloride 20 MEQ TAB PO SCH (09:14)
[2023-05-13] MEDS: Magnesium 2 GM/50 ML(in water) 2 GM in Premix 1 BAG IVPB SCH (09:14)
[2023-05-13] MEDS ORDERED: Ipratropium/Albuterol 3 ML NEB NEB PRN (12:28)
[2023-05-13] MEDS: Gabapentin 300 MG CAP PO SCH (21:19)
[2023-05-13] MEDS: Atorvastatin Calcium 20 MG TAB PO SCH (21:19)
[2023-05-14] MEDS: Enoxaparin 40 MG (0.4 mL) SYRINGE SC SCH (08:31)
[2023-05-14] MEDS: Hydrochlorothiazide 25 MG TAB PO SCH (08:32)
[2023-05-14] MEDS: Fish Oil 1,000 MG CAP PO SCH (08:32)
[2023-05-14] MEDS: Cholecalciferol 1,000 UNITS (25 MCG) TAB PO SCH (08:33)
[2023-05-14] MEDS: Lisinopril 20 MG TAB PO SCH (08:33)
[2023-05-14] MEDS: Amlodipine 5 MG TAB PO SCH (13:46)
[2023-05-15] MEDS: Amlodipine 5 MG TAB PO SCH (08:59)
[2023-05-15 11:56] VITALS: BP 139/83; TEMP 99.2
[2023-05-15] MEDS: Thiamine 100 MG TAB PO SCH (14:41)
== END 2023-05-15 14:55 | DRG 897 ==
LOC: CSHERS 21:59 → CSHERHOLD 05-12 13:31 → CSHTELE 05-12 17:40
PROVIDERS: ADMIT Internal Medicine; ATTEND Family Medicine
PROC: HZ2ZZZZ Detoxification Services for Substance Abuse Treatment (ICD-10-PCS; principal; 2023-05-12)
DX: F10.239 Alcohol dependence with withdrawal, unspecified (principal); F10.229 Alcohol dependence with intoxication, unspecified; I10 Essential (primary) hypertension; E78.00 Pure hypercholesterolemia, unspecified; J44.9 Chronic obstructive pulmonary disease, unspecified; M54.9 Dorsalgia, unspecified; R53.81 Other malaise; G89.29 Other chronic pain; G62.9 Polyneuropathy, unspecified; K27.9 Peptic ulcer, site unspecified, unspecified as acute or chronic, without hemorrhage or perforation; F32.A Depression, unspecified; E83.42 Hypomagnesemia; Z96.642 Presence of left artificial hip joint; Z79.899 Other long term (current) drug therapy; Z79.2 Long term (current) use of antibiotics; Z87.891 Personal history of nicotine dependence; Z90.2 Acquired absence of lung [part of]; Z98.890 Other specified postprocedural states; Z71.41 Alcohol abuse counseling and surveillance of alcoholic
CPT/HCPCS: 36415; 71045; 71275; 80048; 80053; 80306; 80307; 83690; 83735; 83880; 84484; 85025; 93005; 94640; 94760; C9113; J0696; J1650; J2060; J2405; J2765; J3411; J3475; J3490; J7050; J7620; Q0162

== ENCOUNTER → 2024-02-26 | Outpatient (CLI) | payer OTHER | LOC: CSHRAD 09:07 | PROVIDERS: ATTEND Student in an Organized Health Care Education/Training Program | DX: M17.0 Bilateral primary osteoarthritis of knee (principal) ==

== ENCOUNTER 2024-03-05 07:56 | Outpatient (CLI) | payer OTHER | END 2024-03-05 07:57 | disposition home or self-care (01) | LOC: CSHCT 07:56 | PROVIDERS: ATTEND Student in an Organized Health Care Education/Training Program | DX: Z12.2 Encounter for screening for malignant neoplasm of respiratory organs (principal); Z87.891 Personal history of nicotine dependence; R91.8 Other nonspecific abnormal finding of lung field; I25.10 Atherosclerotic heart disease of native coronary artery without angina pectoris; I25.84 Coronary atherosclerosis due to calcified coronary lesion; I31.39 Other pericardial effusion (noninflammatory) | CPT/HCPCS: 71271 ==